=== PATIENT | female | born 1955 | race Caucasian/White ===

== ENCOUNTER 2020-04-09 12:02 | Emergency (ER) | payer MEDICARE, OTHER ==
[~2020-04-09] VITALS: Ht 165.1 cm; Wt 120.7 kg
[2020-04-09] MEDS ORDERED: ALEVE220 MG PO (12:34)
[2020-04-09] MEDS ORDERED: PREDNISONE20 MG PO (14:10)
== END 2020-04-09 14:26 | disposition home or self-care (01) ==
LOC: ED 12:02
DX: M54.5 Low back pain (principal); I48.91 Unspecified atrial fibrillation
CPT/HCPCS: 99283

== ENCOUNTER 2024-03-17 08:17 | Observation (INO) | payer MEDICARE, OTHER ==
[~2024-03-17] VITALS: Ht 165.1 cm; Wt 115.2 kg
[2024-03-17] VITALS (9 sets, daily range): BP systolic 119–137; BP diastolic 63–93
--- NOTE | ~2024-03-17 | EKG ---
[facility] [address] [facility], [place] [address] Draft EK completed, results pending confirmation PATIENT NAME: JENN HERNANDEZ Electrocardiogram DATE OF : 51 PHYSICIAN: PRELIMINARY REPORT #: [id number] REPORT IS CONFIDENTIAL AND NOT TO BE RELEASED WITHOUT AUTHORIZATION
[~2024-03-17 08:17] MED LIST: ALEVE220 MG PO; PREDNISONE20 MG PO
[2024-03-17 08:48] LABS: BASOPHILS 0.8 % (0-2); EOSINOPHILS 3.1 % (0-6); HEMATOCRIT 38.9 % (35.0-50.0); HEMOGLOBIN 13.2 g/dL (12.0-18.0); LYMPHOCYTES 23.8 % (24-44); MCH 30.2 (27-36); MCV 88.7 fl (81-99); MONOCYTES 14.6 % (0-12); NEUTROPHILS 57.7 % (39-80); PLATELET COUNT 258 K/uL (140-440); RBC 4.39 M/ul (4.3-5.7); RDW 14.1 (10.5-15.0)
[2024-03-17] MEDS ORDERED: POTASSIUM CHLO20 ME1 PO (08:59)
[2024-03-17] MEDS ORDERED: ELIQUIS5 MG PO (09:00)
[2024-03-17] MEDS ORDERED: CARVEDILOL25 MG PO (09:00)
[2024-03-17] MEDS ORDERED: LASIX40 MG PO (09:01)
[2024-03-17] MEDS ORDERED: ALENDRONATE SOD70 MG PO (09:01)
[2024-03-17 09:10] LABS: ALBUMIN/GLOBULIN RATIO 0.77 (1.1-2.4); ANION GAP 12.4 (7-21); BUN/CREATININE RATIO 12.5 (6.0-28.6); CALCIUM 8.8 mg/dL (8.5-10.1); CREATININE, SERUM 1.04 mg/dL (0.55-1.02); POTASSIUM 4.4 mmol/L (3.5-5.1); PROTEIN, TOTAL 6.9 g/dL (6.4-8.2)
--- NOTE | 2024-03-17 13:31 | NUR ---
PT TO RM 130 VIA STRETCHER, AMBULATES TO BED STANDBY ASSIST. PT ON MONITOR NSR. PT ORIENTED TO ROOM AND CALL LIGHT.
--- NOTE | 2024-03-17 15:10 | NUR ---
PT ASSISTED STANDBY ASSIST TO RESTROOM AND BACK TO BED, C/O SLIGHT DIZZINESS THAT RESOLVED WHEN BACK TO BED. PT DENIES FURTHER NEEDS AT THIS TIME. CALL LIGHT IN REACH.
[2024-03-17] MEDS ORDERED: MELATONIN5 M2 PO (16:51)
--- NOTE | 2024-03-17 16:52 | NUR ---
MED REC COMPLETE
[2024-03-17] MEDS ORDERED: carvediloL 25 MG TAB PO SCH (17:00)
--- NOTE | 2024-03-17 19:20 | NUR ---
REPORT RECEIVED AND CARE ASSUMED FROM DENISE DODD. PT VSS VIA CONTINUOUS MONITOR.
--- NOTE | 2024-03-17 19:29 | EKG ---
[facility] [address] [facility] [place] [address] Signed Sinus rhythm with 1st degree AV block Left axis deviation Nonspecific intraventricular block Possible Anterolateral infarct (cited on or before 17-MAR-2024) Abnormal ECG When compared with ECG of 17-MAR-2024 18:35, (Unconfirmed) No significant change was found Confirmed by LATA JIMÉNEZ MD ([id number]) on 03/17/2024 7:29:22 PM Electronically Signed By: LATA JIMÉNEZ 03/17/24 1929 PATIENT NAME: MARYJENN M Electrocardiogram DATE OF : 51 PHYSICIAN: LATA JIMÉNEZ REPORT #: [id number] REPORT IS CONFIDENTIAL AND NOT TO BE RELEASED WITHOUT AUTHORIZATION
--- NOTE | 2024-03-17 19:31 | EKG ---
[facility] [address] [facility] [place], [place] [address] Signed Sinus rhythm with 1st degree AV block Left axis deviation Nonspecific intraventricular block Minimal voltage criteria for LVH, may be normal variant ( Jaylen product ) Abnormal ECG No previous ECGs available Confirmed by LATA JIMÉNEZ MD ([id number]) on 03/17/2024 7:30:46 PM Electronically Signed By: LATA JIMÉNEZ 03/17/241930 PATIENT NAME: JENN HERNANDEZ Electrocardiogram DATE OF : 51 PHYSICIAN: LATA JIMÉNEZ REPORT #: [id number] REPORT IS CONFIDENTIAL AND NOT TO BE RELEASED WITHOUT AUTHORIZATION
--- NOTE | 2024-03-17 19:49 | NUR ---
DR JIMÉNEZ NOTIFIED PER PT REQUEST FOR MELATONIN, HOME MEDICATION. TELEPHONE ORDERS RECEIVED, WRITTEN DOWN, READ BACK FOR VERIFICATION AND ENTERED INTO [employer].
--- NOTE | 2024-03-17 20:42 | NUR ---
SHIFT ASSESSMENT COMPLETE. SEE [employer] FOR DETAILS. PT RESTING IN BED USING PERSONAL CELL PHONE AND WATCHING TELEVISION. PT DENIES NEEDS OR PAIN. PT VERBALIZES UNDERSTANDING TO USE CALL LIGHT WITH NEEDS. PT SELF REPOSITIONING. VSS AND NAD NOTED VIA DIRECT OBS, CONTINUOUS MONITOR AND PT STATEMENT.
[2024-03-17] MEDS ORDERED: MELATONIN 3 MG TAB PO SCH (21:00)
[2024-03-17] MEDS ORDERED: APIXABAN 5 MG TAB PO SCH (21:00)
--- NOTE | 2024-03-17 21:55 | NUR ---
PT REQUESTED AND PROVIDED ASSIST TO BATHROOM AND BACK TO BED WITHOUT INCIDENT. PT PROVIDED ICE WATER. PT DENIES ADDITIONAL NEEDS. BD IN LOW, LOKED POSITION WITH BED ALARM ON. CALL LIGHT IN REACH. PERSONAL CELL PHONE IN HAND. VSS AND NAD NOTED VIA DIRECT OBS, CONTINUOUS MONITOR AND PT STATEMENT.
[2024-03-17] MEDS ORDERED: MELATONIN 3 MG TAB PO PRN (23:00)
--- NOTE | 2024-03-17 23:12 | NUR ---
PT SBA TO BATHROOM AND BACK TO BED WITHOUT INCIDENT. PT DENIES ADDITIONAL NEEDS. CELL PHONE IN HAND, CALL LIGHT IN REACH, BED IN LOW, LOCKED POSITION. VSS AND NAD NOTED VIA DIRECT OBS, CONTINUOUS MONITOR AND PT STTAEMENT.
[2024-03-18] VITALS (11 sets, daily range): BP systolic 119–170; BP diastolic 66–100
--- NOTE | 2024-03-18 00:06 | NUR ---
SHIFT ASSESSMENT COMPLETE. PT DENIES NEEDS AT THIS TIME. PT SELF REPOSITIONING. PIV PATENT AND SALINE LOCKED. BED IN LOW, LOCKED POSITION. PERSONAL ITEMS AND CALL LIGHT IN REACH. VSS AND NAD NOTED VIA DIRECT OBS, CONTINUOUS MONITOR AND PT STATEMENT.
--- NOTE | 2024-03-18 02:12 | NUR ---
PT REQUEST AND PROVIDED ASSIST TO BATHROOM AND BACK. PT REQUESTED AND PROVIDED PRN MELATONIN. PT DENIES ADDITIONAL NEEDS AT THIS TIME. CALL LIGHT IN REACH, PERSONAL CELL PHONE IN HAND. BED IN LOW, LOCKED POSITION. VSS AND NAD NOTED VIA DIRECT OBS AND CONTINUOUS MONITOR.
--- NOTE | 2024-03-18 04:36 | NUR ---
SHIFT ASSESSMENT COMPLETE. SEE [employer] FOR DETAILS. PT RESTING IN BED. CELL PHONE AND CALL LIGHT IN REACH. PT DENIES NEEDS AT THIS TIME. BED IN LOW, LOCKED POSITION. VSS AND NAD NOTED VIA DIRECT OBS, PT STATEMENT AND CONTINUOUS MONITOR.
[2024-03-18 05:25] LABS: BASOPHILS 0.8 % (0-2); EOSINOPHILS 4.3 % (0-6); HEMATOCRIT 37.8 % (35.0-50.0); HEMOGLOBIN 12.8 g/dL (12.0-18.0); LYMPHOCYTES 27.3 % (24-44); MCHC 33.7 g/dl (30-36); MCV 88.8 fl (81-99); MONOCYTES 13.3 % (0-12); NEUTROPHILS 54.3 % (39-80); PLATELET COUNT 269 K/uL (140-440); RBC 4.26 M/ul (4.3-5.7); RDW 14.1 (10.5-15.0)
[2024-03-18 05:46] LABS: ALBUMIN 2.8 g/dL (3.4-5.0); ALBUMIN/GLOBULIN RATIO 0.8 (1.1-2.4); ANION GAP 12.4 (7-21); BILIRUBIN, TOTAL 0.6 ng/dL (0.2-1.0); BUN/CREATININE RATIO 12.96 (6.0-28.6); CALCIUM 8.7 mg/dL (8.5-10.1); CREATININE, SERUM 1.08 mg/dL (0.55-1.02); MAGNESIUM 2.1 mg/dL (1.8-2.4); POTASSIUM 4.4 mmol/L (3.5-5.1); PROTEIN, TOTAL 6.3 g/dL (6.4-8.2)
--- NOTE | 2024-03-18 06:13 | NUR ---
PT PLACED ON 2L NC FOR SLEEP APNEA WITH DESAT TO 80s WHILE SLEEPING. PT STATED AT 03:30 SHE HAS SLEEP APNEA AND SOMETIMES USES A CPAP AT HOME. BERNY RT NOTIFIED. PT RESTING IN BED, DENIES NEEDS. VSS AND NAD NOTED VIA DIRECT OBS, CONTINUOUS MONITOR AND PT STATEMENT.
--- NOTE | 2024-03-18 07:05 | NUR ---
PT REQUESTED AND PROVIDED ASSIST TO THE BATHROOM AND BACK TO BED WITHOUT INCIDENT. PT DENIES NEEDS. CALL LIGHT IN REACH. PT ON PERSONAL CELL PHONE. BED IN LOW, LOCKED POSITION. VSS AND NAD NOTED VIA PT STATEMENT, CONTINUOUS MONITOR AND DIRECT OBS.
--- NOTE | 2024-03-18 07:08 | NUR ---
DR JIMÉNEZ IN ROOM FOR PT ROUNDING.
--- NOTE | 2024-03-18 07:09 | NUR ---
REPORT GIVEN AND CARE ENDORSED TO DENISE DODD AND DENISE LIGHT. PT VSS VIA CONTINUOUS MONITOR.
--- NOTE | 2024-03-18 07:15 | NUR ---
REPORT RECEIVED FROM WILLY WALKER, ALL QUESTIONS ANSWERED. PT AWAKE IN BED ON CELL PHONE. GIVEN FRESH CUP OF COFFEE. DENIES NEEDS AT THIS TIME. CALL LIGHT IN REACH.
[2024-03-18] MEDS ORDERED: carvediloL 6.25 MG TAB PO SCH (08:00)
--- NOTE | 2024-03-18 08:22 | NUR ---
PATIENT IN BED AT THIS TIME. CALL LIGHT WITHIN REACH, NO FURTHER NEEDS AT THIS TIME.
[2024-03-18] MEDS ORDERED: FUROSEMIDE 40 MG TAB PO SCH (09:00)
--- NOTE | 2024-03-18 09:10 | NUR ---
PATIENT IN BED AT THIS TIME. REVIEW RN PROVIDED FRESH ICE WATER TO PATIENT. CALL LIGHT WITHIN REACH, NO FURTHER NEEDS AT THIS TIME.
[2024-03-18] MEDS ORDERED: FLECAINIDE ACE100 MG PO (09:31)
[2024-03-18] MEDS ORDERED: PHARMACY RENAL DOSE ADJUSTMENT 1 DOSE MISC PO SCH (12:00)
--- NOTE | 2024-03-18 22:08 | EKG ---
[facility] [address] [facility] [place] [address] Signed Sinus rhythm with 1st degree AV block Left axis deviation Possible Lateral infarct (cited on or before 17-MAR-2024) Abnormal ECG When compared with ECG of 17-MAR-2024 18:37, Questionable change in initial forces of Anterolateral leads Confirmed by Odell Hercules MD () on 03/18/2024 10:08:13 PM Electronically Signed By: ODELL HERCULES MD 03/18/24 220 PATIENT NAME: JENN HERNANDEZ Electrocardiogram DATE OF : 51 PHYSICIAN: ODELL HERCULES MD REPORT #: [id number] REPORT IS CONFIDENTIAL AND NOT TO BE RELEASED WITHOUT AUTHORIZATION
== END 2024-03-18 10:02 | disposition home or self-care (01) ==
LOC: ED 08:17 → CCU 08:19
PROVIDERS: Emergency Medicine; ADMIT Internal Medicine; ATTEND Internal Medicine
DX: T46.2X1A Poisoning by other antidysrhythmic drugs, accidental (unintentional), initial encounter (principal); I10 Essential (primary) hypertension; I48.91 Unspecified atrial fibrillation; Z79.899 Other long term (current) drug therapy; Z79.01 Long term (current) use of anticoagulants
CPT/HCPCS: 36415; 71045; 80048; 80053; 83735; 83880; 84484; 85025; 93005; 93010